=== PATIENT | female | born 1960 | race Caucasian/White ===

== ENCOUNTER 2025-01-07 16:35 | Emergency (ER) | payer MEDICARE, MEDICAID, SELFPAY ==
--- OUTSIDE RECORDS SUMMARY | 2025-01-07 16:40 | XMS_ITS | Clinical Summary ---
Author Organization [facility] Address [address] [place] [address] [place] [address] Phone Care Team Providers Care Manufacturing Baker Name Role Phone Collin Crowell VENEER TAPING MACHINE OFFBEARER Primary Care Provider [phone] Allergies Active Allergy Reactions Criticality Noted Date Comments Zolpidem Hallucinations Medium 05/26/2023 Propranolol Other Medium 05/26/2023 Low heartbeat Medications Ubrelvy 100 mg tablet Take 100 mg by mouth if needed. 08/23/2022 Active escitalopram (Lexapro) 10 mg tablet Take 10 mg by mouth 1 (one) time each day. 05/02/2023 Active meloxicam (Mobic) 15 mg tablet Take 15 mg by mouth 1 (one) time each day. 03/04/2023 Active estradioL (Estrace) 2 mg tablet Take 2 mg by mouth 1 (one) time each day. 03/04/2023 Active butalbital-acet aminophen-caff (Fioricet, Esgic) 50-325-40 mg tablet Take 1 tablet by mouth every 6 (six) hours if needed for migraine. 04/19/2023 Active cyclobenzaprine (Flexeril) 10 mg tablet Take 10 mg by mouth 3 (three) times a day if needed for muscle spasms. 08/31/2022 Active Claritin-D 12 Hour 5-120 mg 12 hr tablet Take 1 tablet by mouth 2 (two) times a day. 07/29/2022 Active dicyclomine (Bentyl) 10 mg capsule Take 10 mg by mouth 2 (two) times a day. 08/12/2022 Active UNABLE TO FIND Take 1 tablet by mouth 1 (one) time each day. Med Name: Vision Formula 50+ Active aspirin-acetami nophen-caffeine (Excedrin Migraine) 250-250-65 mg tablet Take 1 tablet by mouth every 6 (six) hours if needed for headaches. 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 Family History Medical History Relation Comments Diabetes Brother 1 Skin cancer Brother 1 Heart disease Brother 2 Prostate cancer Father Cancer Mother Diabetes Mother Heart disease Mother Lung cancer Mother Stroke Mother Breast cancer Sister 1 Diabetes Sister 1 Heart disease Sister 1 Stroke Sister 1 Cancer Sister 2 sarcoma Diabetes Sister 2 Heart disease Sister 2 Malig Hyperthermia Neg Hx Pseudochol deficiency Neg Hx Relation Status Comments Brother 1 Brother 2 Father Mother Sister 1 Sister 2 Social History Tobacco Use Types Packs/Day Years Used Date Smoking Tobacco: Never Smokeless Tobacco: Never Tobacco Cessation:Counseling Given: Not Answered Alcohol Use Standard Drinks/Week Comments Yes 0 (1 standard drink = 0.6 oz pur e alcohol) rarely PHQ-2 Answer Date Recorded Patient Health Questionnaire-2 Score 0 06/23/2023 [facility] - Mental Health Answer Date Recorde d Little interest or pleasure in doing things Not at all 06/23/2023 Feeling down, depressed, or hopeless Not at all 06/23/2023 Feeling of Stress Not on file 06/23/2023 Comments No Sex and Gender Information Value Date Recorded Sex Assigned at Not on file Legal Sex Female 8:48 AM CDT Gender Identity Not on file Sexual Orientation Not on file Last Filed Vital Signs Vital Sign Reading Time Taken Comments Blood Pressure 115/75 06/23/2023 8:57 AM CDT Pulse 62 06/23/2023 8:57 AM CDT Temperature 36.8 C (98.2 F) 06/23/2023 8:57 AM CDT Respiratory Rate 19 06/05/2023 9:30 AM CDT Oxygen Saturation 100% 06/23/2023 8:57 AM CDT Inhaled Oxygen Concentration - - Weight 73.7 kg (162 lb 6.4 oz) 06/23/2023 8:57 A M CDT Height 167.6 cm (5' 6 ) 06/23/2023 8:57 AM CDT Body Mass Index 26.21 06/23/2023 8:57 AM CDT Plan of Treatment Health Maintenance Due Date Last Done Comments CT Colonography 1959 Colonoscopy 1959 Colorectal Cancer Screening 1959 FIT-DNA 1959 FIT 1959 FOBT 1959 Sigmoidoscopy 1959 MMR Vaccines (1 of 1 - Stand renae series) 08/25/1960 COVID-19 Vaccine (#1) 08/25/1964 Varicella Vaccines (1 of 2 - 13+ 2-dose series) 08/25/1972 Depression Screening 08/25/1977 Diabetes Screening 08/25/1977 Social Drivers of Health (SDoH) 08/25/1977 Pneumococcal Vaccine: 50+ Ye ars (1 of 2 - PCV) 08/25/1978 Pneumococcal Vaccine (1 of 2 - PCV) 08/25/1978 Zoster Vaccines (1 of 2) 08/25/1978 Mammogram 1999 DTaP,Tdap,and Td Vaccines (2 - Td or Tdap) 12/24/2017 11/26/2017 Complete Fall Risk Assessment 08/25/2024 Influenza Vaccine (#1) 2024 RSV Vaccines (1 - 1-dose 75+ series) 08/25/2034 HIB Vaccines Aged Out No longer eligi ble based on patient's age to complete this topic HPV Vaccines Aged Out No longer eligi ble based on patient's age to complete this topic Hepatitis A Vaccines Aged Out No long er eligible based on patient's age to complete this topic Hepatitis B Vaccines Aged Out No long er eligible based on patient's age to complete this topic IPV Vaccines Aged Out No longer eligi ble based on patient's age to complete this topic Meningococcal B Vaccine Aged Out No l onger eligible based on patient's age to complete this topic Meningococcal Vaccine Aged Out No dolores matt eligible based on patient's age to complete this topic Rotavirus Vaccines Aged Out No longer eligible based on patient's age to complete this topic Insurance MED PAY Care Teams Manufacturing Baker Relationship Specialty Start Date End Date Collin Crowell FNP [address] [place] [address] PCP - General Family Medicine 06/05/23
--- OUTSIDE RECORDS SUMMARY | 2025-01-07 16:40 | XMS_ITS | Patient Health Record ---
Author Organization [facility] Address Formerly [facility] [place] [address] Care Team Providers Care Prevention Coordinator Name Role Phone Amy Lovell Primary Care Provider [phone] Allergies Allergen (clinical drug ingredient) Drug/Non Drug Allergy documented on EMR Reaction Allergy Type Onset Date Status gabapentin Gabapentin mood Drug Allergy Activ e Reason For Referral No Information Medications Medication SIG (Take, Route, Frequency, Duration) Notes Start Date End Date Status Loratadine 10 MG Tablet 1 tab(s) orally daily prn allergies; Duration: 90 day(s) Active ELAVIL 25 MG TABLET 1 TAB(S) ORALLY ONCE A DAY (AT BEDTIME) *Please review for potential replacement for e-prescription and drug interaction check* Not-Taking/P RN Cyclobenzaprine HCl 10 MG Tablet 1 tab(s) orally qhs prn muscle spasm; Duration: 30 days 08/11/2020 Active Percocet 5-325 MG Tablet 1 tab(s) orally every 6 hours Unknown Lunesta 2 MG Tablet 1 tab(s) orally qhs prn rest; Duration: 30 days Active Sulfamethoxazole-Trim ethoprim 800-160 MG Tablet 1 tab(s) orally 2 times a day Not-Taking/P RN SUMAtriptan Succinate 100 MG Tablet 1 tab(s) orally daily prn for migraine; Duration: 90 day(s) Active RANITIDINE 150 MG CAPSULE 1 CAP(S) ORALLY 2 TIMES A DAY *Please review for potential replacement for e-prescription and drug interaction check* Not-Taking/P RN Triamcinolone Acetonide 0.5 % Cream apply to affected area applied topically bid prn; Duration: 7 day(s) 07/03/2020 Active Meclizine HCl 25 MG Tablet 1 tab(s) orally tid prn dizziness; Duration: 90 day(s) 08/12/2020 Active Eszopiclone 2 MG Tablet 1 tab(s) orally qhs prn rest; Duration: 30 days 07/03/2020 Active Nitrofurantoin Macrocrystal 100 MG Capsule 1 cap(s) orally 2 times a day; Duration: 7 days 09/13/2019 Not-Taking/P RN Mupirocin 2 % Ointment apply to affected area in nose applied topically tid prn; Duration: 5 day(s) 07/16/2020 Active Ferrous Sulfate 325 (65 Fe) MG Tablet 1 tab(s) orally once a day; Duration: 30 day(s) 12/07/2016 Not-Taking/P RN Acetaminophen-Codeine 300-30 MG Tablet 1 tab(s) orally every 8 hours prn pain; Duration: 10 day(s) 08/20/2020 Active dexAMETHasone 2 MG Tablet 1 tab(s) orally 2 times a day; Duration: 3 day(s) 08/20/2020 Active HYDROCORTISONE/NEOMYC IN/POLYMYXIN B OTIC 1%-0.35%-51645 UNITS/ML SOLUTION 2 GTT IN EACH AFFECTED EAR TID; Duration: 5 DAY(S) *Please review for potential replacement for e-prescription and drug interaction check* 07/29/2020 Active dexAMETHasone 2 MG Tablet 1 tab(s) orally 2 times a day; Duration: 7 day(s) 05/30/2019 Not-Taking/P RN Estradiol 2 MG Tablet 1 tab(s) orally once a day; Duration: 90 day(s) Active IBU 800 MG Tablet 1 tab(s) orally BID PRN; Duration: 10 day(s) 06/11/2019 Not-Taking/P RN Meloxicam 15 MG Tablet 1 tab(s) orally daily prn pain with food; Duration: 90 day(s) 07/06/2020 Active Singulair 10 MG Tablet 1 tab(s) orally once a day Not-Taking/P RN Dicyclomine HCl 10 MG Capsule 1 capsule orally bid prn gas; Duration: 90 day(s) 11/01/2019 Active Amitriptyline HCl 10 MG Tablet 1 tab(s) orally once a day (at bedtime) Not-Taking/P RN Social History Tobacco Use: Social History Observation Description Date Details (start date - stop date) Never Smoker NA - NA Social History Social Determinants Social Info Question Answer Notes PRAPARE What is your current housing situation? I have housing Are you worried about losing your housing? No What is the highest level of school that you have finished? High school diploma or GED What is your current work situation? 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 Check all that apply I do not have problems meeting my needs Has lack of transportation k ept you from medical appointments, meetings, work or from getting things needed for daily living? No PRAPARE Score: 4 Sexual Orientation Social Info Question Answer Notes Sexual Orientation Sexual Orientation Straight ( not lesbian or raphael) Gender Identify Gender Identity Female COVID19 Immunization Screeni ng Social Info Question Answer Notes COVID19 Immunization Screening Have you received your 1st COVID vaccine? No General info Social Info Question Answer Notes Alcohol Did you have drink containing alcohol in past year No Points 0 Interpretation Negative SMOKING HISTORY: Do you smoke or use other tobacco products Never Comprehensive Health Assessm ent Social Info Question Answer Notes : Date of assessment 07/03/2020 Reconciled Immunizations with Grits Yes None needed Assessed Family/social cultu ral characteristics Yes Household members include:, Siblings Assessed communication needs Yes Non e Medical History of Family Documented Yes Assessed Behaviors Affecting Health Yes No risk Mental health/Substance abus e of patient and family Yes Yes Smokers in the home No Dental Query performed 07/03/2020 Dental care in the past 12 months? No Dental Screening Assessment Social Info Question Answer Notes Dental Query Dental Query Performed 12/07/2016 Dental Care in Past 12 months? No [facility]erral to [facility] Dental Dept Yes Referral Date 12/07/2016 Problems Problem Type SNOMED Code ICD Code Onset Dates Problem Status W/U Status Risk Notes Problem Acute cystitis (99793028) Acute cystitis without hematuria (N30.00) Active confirmed Problem Postmenopausal bleeding (20998375) Postmenopausal bleeding (N95.0) Active confirmed u/s ordered and will do EMB after. Problem Body mass index 30.00 to 34.99 (833904426074534) Body mass index (BMI) 31.0-31.9, adult (Z68.31) Active confirmed Problem Body mass index 30.00 to 34.99 (924682427441691) Body mass index (BMI) 33.0-33.9, adult (Z68.33) Active confirmed Problem Insomnia (900066229) Insomnia (G47.00) Active confirmed Problem Urinary tract infectious disease (22860543) UTI (urinary tract infection) (N39.0) Active confirmed Problem Abnormal vaginal bleeding (503569145) DUB (dysfunctional uterine bleeding) (N93.8) Active confirmed Problem Vertigo (533240088) Vertigo (R42) Active confirmed Problem Bursitis (17701927) Bursitis (M71.9) Active confirmed Problem Right shoulder pain (6552900863) Right shoulder pain (M25.511) Active confirmed Problem Left knee pain (130287813100192) Left knee pain (M25.562) Active confirmed Problem Right knee pain (558032082173942) Right knee pain (M25.561) Active confirmed Problem Otitis externa of left ear (1669351649354227) Left otitis externa (H60.92) Active confirmed Problem Migraine (22178039) Migraine (G43.909) Active confirmed Problem Acute gastritis (49490783) Acute gastritis (K29.00) Active confirmed Problem Allergic contact dermatitis (068535824) Allergic dermatitis (L23.9) Active confirmed Problem Paronychia (11913758) Paronychia (L03.019) Active confirmed Problem Vaginal Rahul (20602950) Vaginal rahul (B37.3) Active confirmed Problem Postmenopausal (13033341) Postmenopausal (Z78.0) Active confirmed Problem Hormone replacement therapy (032031983) Hormone replacement therapy (Z79.890) Active confirmed Problem Constipation (60297450) Constipation, unspecified constipation type (K59.00) Active confirmed Problem Lumbar pain (599511020) Lumbar pain (M54.5) Active confirmed Problem Acute maxillary sinusitis (49620026) Acute non-recurrent maxillary sinusitis (J01.00) Active confirmed Problem Insomnia (034088275) Insomnia, unspecified type (G47.00) Active confirmed Problem Shoulder joint pain (007555693) Acute pain of right shoulder (M25.511) Active confirmed Problem Uterine leiomyoma (39873609) Uterine leiomyoma, unspecified location (D25.9) Active confirmed Problem Migraine (39599597) Migraine without status migrainosus, not intractable, unspecified migraine type (G43.909) Active confirmed Problem Endometrium thickened (finding) (004524280) Endometrial thickening on ultra sound (R93.8) Active confirmed Problem Plantar wart of right foot (34460192711366318 ) Plantar wart of right foot (B07.0) Active confirmed Problem Crohn's disease (60365752) Crohn''s disease without complication, unspecified gastrointestinal tract location (K50.90) Active confirmed Problem Sciatica (74570572) Right sided sciatica (M54.31) Active confirmed Problem Uterovaginal prolapse (25860016) Cystocele with small rectocele and uterine descent (N81.4) Active confirmed grade 3 cystocele, mild rectocele that is making it hard for defecation with some uterine desent with valsalva. Will ref when pt's insurance becomes active in February. Problem Midline cystocele (210466152) Bladder prolapse, female, acquired (N81.10) Active confirmed Problem Allergic rhinitis (06448577) Allergic rhinitis (J30.9) Active confirmed Problem Abscess of nose (9992754) Abscess of nose (J34.0) Active confirmed Problem Contusion of lower leg (97671977) Hematoma of left lower extremity, initial encounter (S80.12XA) Active confirmed Problem Pure hyperglyceridemia (623350900) Pure hypertriglyceridemi a (E78.1) Active confirmed Problem Crohn's disease (24669421) Crohn's disease with complication, unspecified gastrointestinal tract location (K50.919) Active confirmed Plan Of Treatment Pending Test Test Name Order Date TISSUE PATHOLOGY 12/26/2016 SHOULDER 2 VWS RT 05/10/2019 Insurance Providers Payer Name Payer Address Payer Phone Subscriber Number Group Number Insured Name Patient Relationship to Insured Coverage Start Date Coverage End Date [facility] [address] [place] [address] [id number] Penny Mcmahon Self - patient is the insured 01/01/202 0 Medications Administered Medication Instructions Date of Administration Dosage Notes Depo-Medrol 04/24/2019 80 mg Depo-Medrol 04/10/2020 80 mg Depo-Medrol 05/08/2020 80 mg Depo-Medrol 08/12/2020 80 mg Do not use---Toradol 05/20/2019 60 mg Toradol / Ketorolac 30mg/ml 01/02/2020 30 Medical (General) History Medical History History ICD Code Crohns disease without compl ication, unspecified gastrointestinal tract location K50.90 Constipation, unspecified constipation t ype K59.00 Surgical History Surgery Date(Month/Year) tubal ligation back surgery Hospitalization History Reason Date(Month/Year) [facility] 05/[address] [facility] 05/2019
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
[2025-01-07 16:58] VITALS: BP 138/82; PULSE 59; TEMP 36.7; O2SAT 99
--- NOTE | 2025-01-07 17:13 | ED_ITS ---
HPI - Extremity Problem General: Chief complaint: Extremity Injury, Lower Stated complaint: back pain going down R leg, nausea Time Seen by Provider: 01/07/25 17:05 History of Present Illness: 64-year-old female with a history of chr onic knee pain and migraines who presents to the emergency room with knee pain, back pain that started a couple days ago. Related Data Home Medications ?Medication ?Instructions ?Recorded ?Confirmed cyclobenzaprine 10 mg tablet 10 mg PO DAILY PRN 01/30/24 dicyclomine 10 mg capsule 10 mg PO BID 07/21/23 estradiol 2 mg tablet 2 mg PO DAILY 07/21/2301/29 ubrogepant 100 mg tablet (Ubrelvy) 100 mg PO DIRECT ED PRN 07/21/23 01/30/24 meloxicam 15 mg tablet 15 mg PO DAILY 01/30/2401/05 Previous Rx's ?Medication ?Instructions ?Recorded galcanezumab-gnlm 120 mg/mL 120 mg SUBCUT ONCE #1 mL 1 03/31/23 subcutaneous syringe (Emgality) cyclobenzaprine 10 mg tablet 10 mg PO Q8H PRN muscle s pasm #20 01/07/25 tabs hydrocodone 5 mg-acetaminophen 325 1 tab PO Q6H PRN pa in #20 tabs 01/07/25 mg tablet polyethylene glycol 3350 17 17 g PO DAILY #510 grams 1 03/09/24 gram/dose oral powder (Miralax) prednisone 20 mg tablet 60 mg (3 x 20 mg) PO DAILY # 20 tabs 01/07/25 Allergies Allergy/AdvReac Type Severity Reaction Status Date / Time morphine Allergy Unknown Verified 01/07/25 17:04 [facility] ED PFSH: Social History Smoking and tobacco/nicotine status: never used tobacco/nicotine Course Vital Signs: Vital signs: Vital Signs Temperature 98.1 F 01/07/25 16:58 Pulse Rate 56 L 01/07/25 17:32 Blood Pressure 120/75 01/07/25 17:32 Pulse Oximetry 100 01/07/25 17:32 Oxygen Delivery Me thod Room Air 01/07/25 17:32 Discharge Plan Discharge Patient Disposition: Home Clinical Impression: Sciatica, Chronic knee pain Condition: Stable Prescriptions: New cyclobenzaprine 10 mg tablet 10 mg PO Q8H PRN (Reason: muscle spasm) Qty: 20 0RF hydrocodone-acetaminophen 5-325 mg tablet 1 tab PO Q6H PRN (Reason: pain) Qty: 20 0RF prednisone 20 mg tablet 60 mg PO DAILY Qty: 20 0RF Rx Instructions: 3 tabs (60 mg) x 3 days. 2 tabs (40 mg) x 3 days. 1 tab (20 mg) x 3 days. 1/2 tab (10 mg) x 4 days polyethylene glycol 3350 [Miralax] 17 gram/dose powder 17 g PO DAILY Qty: 510 0RF Rx Instructions: Take 1 scoop daily while taking pain medications. No Action Ubrelvy 100 mg tablet 100 mg PO DIRECTED PRN dicyclomine 10 mg capsule 10 mg PO BID estradiol 2 mg tablet 2 mg PO DAILY cyclobenzaprine 10 mg tablet 10 mg PO DAILY PRN meloxicam 15 mg tablet 15 mg PO DAILY Emgality Syringe 120 mg/mL syringe 120 mg SUBCUT ONCE Qty: 1 5RF Discharge Orders: Discharge ED (Routine); Ordered 01/07/25 Ordered By: Kristel English Referrals: Collin Crowell, GLOBAL ACCOUNT DIRECTOR [Primary Care Provider] Discharge Diet: Usual diet Discharge Activity: Increase activity as tolerated Patient Instructions: Sciatica (ED), Lumbar Radiculopathy (ED), Opioid Safety, Pain Management, Patient Portal & Lanie Instructions Activity Restrictions/Additional Instructions: Thank you for choosing [facility] for your healthcare needs today. You have been screened and evaluated and felt safe for discharge. Health conditions do change or evolve sometimes and as such it is important that you follow up with your Primary Doctor to be re checked, 3-5 days is a general good time frame for follow up. You are always welcome to return to the ED for re assessment if your symptoms are worsening or you have new concerns Print Language: Polish Coding Level of Care Code ED Glove Boarder for Radhames Moncada
--- NOTE | 2025-01-07 17:13 | W.ED.EXTPRO ---
HPI - Extremity Problem General: Chief complaint: Extremity Injury, Lower Stated complaint: back pain going down R leg, nausea Time Seen by Provider: 01/07/25 17:05 History of Present Illness: 64-year-old female with a history of chronic knee pain and migraines who presents to the emergency room with knee pain, back pain that started a couple days ago. She said she had some blood in her urine but is on antibiotics for UTI currently. She is not having any dysuria. And her symptoms appear to be musculoskeletal as worsened with movement and started with some heavy lifting. No saddle numbness, no fecal or urinary retention or incontinence, no focal motor deficit, no sensory deficit. She also says her knee gives out on her which happens a lot has been going on for a long time Related Data Home Medications ?Medication ?Instructions ?Recorded ?Confirmed cyclobenzaprine 10 mg tablet 10 mg PO DAILY PRN 07/21/23 01/30/24 dicyclomine 10 mg capsule 10 mg PO BID 07/21/23 01/30/24 estradiol 2 mg tablet 2 mg PO DAILY 07/21/23 01/30/24 ubrogepant 100 mg tablet (Ubrelvy) 100 mg PO DIRECTED PRN 07/21/23 01/30/24 meloxicam 15 mg tablet 15 mg PO DAILY 01/30/24 01/30/24 Previous Rx's ?Medication ?Instructions ?Recorded galcanezumab-gnlm 120 mg/mL 120 mg SUBCUT ONCE #1 mL 01/30/24 subcutaneous syringe (Emgality) cyclobenzaprine 10 mg tablet 10 mg PO Q8H PRN muscle spasm #20 01/07/25 tabs hydrocodone 5 mg-acetaminophen 325 1 tab PO Q6H PRN pain #20 tabs 01/07/25 mg tablet polyethylene glycol 3350 17 17 g PO DAILY #510 grams 01/07/25 gram/dose oral powder (Miralax) prednisone 20 mg tablet 60 mg (3 x 20 mg) PO DAILY #20 tabs 01/07/25 Allergies Allergy/AdvReac Type Severity Reaction Status Date / Time morphine Allergy Unknown Verified 01/07/25 17:04 Review of Systems Narrative: Constitutional symptoms: Negative except as documented in HPI. Skin symptoms: Negative except as documented in HPI. Eye symptoms: Negative except as documented in HPI. ENMT symptoms: Negative except as documented in HPI. Respiratory symptoms: Negative except as documented in HPI. Cardiovascular symptoms: Negative except as documented in HPI. Gastrointestinal symptoms: Negative except as documented in HPI. Genitourinary symptoms: Negative except as documented in HPI. Musculoskeletal symptoms: Negative except as documented in HPI. Neurologic symptoms: Negative except as documented in HPI. Psychiatric symptoms: Negative except as documented in HPI. Endocrine symptoms: Negative except as documented in HPI. [facility] ED PFSH: Social History Smoking and tobacco/nicotine status: never used tobacco/nicotine Physical Exam Narrative: EXAM NARRATIVE: General: Alert, no acute distress. Head: Normocephalic Neck: Trachea midline Eye: Extraocular movements are intact. Ears, nose, mouth and throat: Oral mucosa moist Respiratory: Respirations are non-labored Musculoskeletal: Normal ROM Back: no step off, no focal tenderness, some paraspinal muscle tenderness Neurological: Alert and oriented, No focal neurological deficit observed. Psychiatric: Cooperative, appropriate mood & affect. 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 I reviewed the patient's medical record. Patient has been seen in [address] Wagoner for migraines I reviewed the patient's current home meds Patient does not take any regular medications at this time Alternate historians: None needed Differential diagnosis: including but not limited to and based on the above HPI, review of systems and physical exam: In this patient with nontraumatic back pain that appears to be completely musculoskeletal with no neurologic deficits this is likely sciatica or lumbar radiculopathy. No lab work or imaging indicated today Assessment of risk: Level of risk: Low risk Hospitalization considerations: No considerations of hospitalization Reexamination: Patient remained stable. No increased work of breathing. No altered mental status. No focal motor deficits. Patient felt somewhat better after receiving medications Assessment and plan: Sciatica Lumbar radiculopathy Chronic knee pain ? IV Decadron, Norflex, Zofran, Dilaudid and Toradol - Discharged home - Discussed plan with patient. Answered any questions. - Evaluation and treatment of this problem were appropriate in the emergency setting. No radiology studies performed this visit Discharge Plan Discharge Patient Disposition: Home Clinical Impression: Sciatica, Chronic knee pain Condition: Stable Prescriptions: New cyclobenzaprine 10 mg tablet 10 mg PO Q8H PRN (Reason: muscle spasm) Qty: 20 0RF hydrocodone-acetaminophen 5-325 mg tablet 1 tab PO Q6H PRN (Reason: pain) Qty: 20 0RF prednisone 20 mg tablet 60 mg PO DAILY Qty: 20 0RF Rx Instructions: 3 tabs (60 mg) x 3 days. 2 tabs (40 mg) x 3 days. 1 tab (20 mg) x 3 days. 1/2 tab (10 mg) x 4 days polyethylene glycol 3350 [Miralax] 17 gram/dose powder 17 g PO DAILY Qty: 510 0RF Rx Instructions: Take 1 scoop daily while taking pain medications. No Action Ubrelvy 100 mg tablet 100 mg PO DIRECTED PRN dicyclomine 10 mg capsule 10 mg PO BID estradiol 2 mg tablet 2 mg PO DAILY cyclobenzaprine 10 mg tablet 10 mg PO DAILY PRN meloxicam 15 mg tablet 15 mg PO DAILY Emgality Syringe 120 mg/mL syringe 120 mg SUBCUT ONCE Qty: 1 5RF Discharge Orders: Discharge ED (Routine); Ordered 01/07/25 Ordered By: Kristel English Referrals: Collin Crowell, CONTINUOUS IMPROVEMENT CONSULTANT [Primary Care Provider] Discharge Diet: Usual diet Discharge Activity: Increase activity as tolerated Patient Instructions: Sciatica (ED), Lumbar Radiculopathy (ED), Opioid Safety, Pain Management, Patient Portal & Lanie Instructions Activity Restrictions/Additional Instructions: Thank you for choosing [facility] for your healthcare needs today. You have been screened and evaluated and felt safe for discharge. Health conditions do change or evolve sometimes and as such it is important that you follow up with your Primary Doctor to be re checked, 3-5 days is a general good time frame for follow up. You are always welcome to return to the ED for re assessment if your symptoms are worsening or you have new concerns Print Language: Malay Coding Level of Care Code ED Workers Compensation Claims Adjuster for Radhames Moncada
[2025-01-07 17:32] VITALS: BP 120/75; PULSE 56; O2SAT 100
[2025-01-07] MEDS: ondansetron 2 mg/ML SDV 2 mL 4 MG IVP (18:07)
[2025-01-07] MEDS: orphenadrine 30 mg/mL Inj 2 mL 60 MG IVP (18:09)
[2025-01-07] MEDS: HYDROmorphone 0.5 MG/0.5 ML INJ 1 MG IVP (18:28)
[2025-01-07 19:20] VITALS: BP 128/72; PULSE 72; O2SAT 96
== END 2025-01-07 19:22 | disposition home or self-care (01) ==
PROVIDERS: Emergency Provider Emergency Medicine; PCP Registered Nurse
DX: M54.31 Sciatica, right side (principal); M25.561 Pain in right knee
CPT/HCPCS: 96374; 96375; 99284; J1100; J1171; J1885; J2360; J2405